=== PATIENT | male | born 1990 | race Caucasian/White ===

== ENCOUNTER 2022-01-14 17:29 | Emergency (ER) | payer MEDICAID ==
[~2022-01-14] VITALS: Ht 165.1 cm; Wt 54.0 kg
[2022-01-14 17:45] VITALS: BP 125/71
[2022-01-14] MEDS ORDERED: HYDR-4001 MT (23:08)
[2022-01-14] MEDS ORDERED: AMOX-494 MT (23:08)
[2022-01-14] MEDS ORDERED: HYDROCODONE/ACETAMINOPHEN 5/325MG TABLET PO ONE (23:15)
[2022-01-14] MEDS ORDERED: AMOXICILLIN 500 MG CAPSULE PO ONE (23:15)
== END 2022-01-15 00:15 | disposition home or self-care (01) ==
LOC: ER 17:29
DX: K08.89 Other specified disorders of teeth and supporting structures (principal); Z98.890 Other specified postprocedural states
CPT/HCPCS: 99283